=== PATIENT | male | born 1980 | race Caucasian/White ===

== ENCOUNTER 2021-10-24 06:42 | Emergency (ER) | payer OTHER ==
[2021-10-24] MEDS ORDERED: PREDNISONE 20MG20 MG PO (07:34)
== END 2021-10-24 07:51 | disposition home or self-care (01) ==
LOC: FER 06:42
DX: L30.9 Dermatitis, unspecified (principal); F17.210 Nicotine dependence, cigarettes, uncomplicated
CPT/HCPCS: 99282